=== PATIENT | male | born 1940 | race Caucasian/White ===

== ENCOUNTER 2016-05-09 15:08 | Outpatient (CLI) | payer MEDICARE | END 2016-05-09 15:09 | disposition home or self-care (01) | DX: Z79.01 Long term (current) use of anticoagulants (principal); I48.91 Unspecified atrial fibrillation ==

== ENCOUNTER 2016-05-16 10:09 | Outpatient (CLI) | payer MEDICARE | END 2016-05-16 10:10 | disposition home or self-care (01) | DX: I48.2 Chronic atrial fibrillation (principal); E74.9 Disorder of carbohydrate metabolism, unspecified ==

== ENCOUNTER 2016-07-10 13:41 | Outpatient (CLI) | payer MEDICARE | END 2016-07-10 13:42 | disposition home or self-care (01) | DX: I48.91 Unspecified atrial fibrillation (principal); Z79.01 Long term (current) use of anticoagulants ==

== ENCOUNTER 2016-07-18 12:52 | Outpatient (CLI) | payer MEDICARE | END 2016-07-18 12:53 | disposition home or self-care (01) | DX: I48.91 Unspecified atrial fibrillation (principal); Z79.01 Long term (current) use of anticoagulants ==

== ENCOUNTER 2016-07-24 09:43 | Outpatient (CLI) | payer MEDICARE | END 2016-07-24 09:44 | disposition home or self-care (01) | DX: I48.2 Chronic atrial fibrillation (principal); Z79.899 Other long term (current) drug therapy; I10 Essential (primary) hypertension ==

== ENCOUNTER 2016-08-19 11:37 | Outpatient (CLI) | payer MEDICARE | END 2016-08-19 11:38 | disposition home or self-care (01) | DX: Z00.00 Encounter for general adult medical examination without abnormal findings (principal); I48.91 Unspecified atrial fibrillation; Z79.01 Long term (current) use of anticoagulants; E55.9 Vitamin D deficiency, unspecified; E03.9 Hypothyroidism, unspecified; R73.9 Hyperglycemia, unspecified; E78.2 Mixed hyperlipidemia; Z79.899 Other long term (current) drug therapy ==

== ENCOUNTER 2016-10-16 14:51 | Outpatient (CLI) | payer MEDICARE ==
[2016-10-16 15:19] LABS: CALCIUM 9.5 mg/dL (8.5-10.3); CREATININE 0.7 mg/dL (0.6-1.2); POTASSIUM 4.2 mmol/L (3.5-5.0)
== END 2016-10-16 14:52 | disposition home or self-care (01) ==
LOC: LAB 14:51
PROVIDERS: ATTEND Internal Medicine
DX: Z79.01 Long term (current) use of anticoagulants (principal)
CPT/HCPCS: 36415; 80048; 85610

== ENCOUNTER 2016-12-17 10:52 | Outpatient (CLI) | payer MEDICARE | END 2016-12-17 10:53 | disposition home or self-care (01) | LOC: LAB 10:52 | PROVIDERS: ATTEND Internal Medicine | DX: Z79.01 Long term (current) use of anticoagulants (principal) | CPT/HCPCS: 85610 ==

== ENCOUNTER 2016-12-24 10:21 | Outpatient (CLI) | payer MEDICARE | END 2016-12-24 10:22 | disposition home or self-care (01) | LOC: LAB 10:21 | PROVIDERS: ATTEND Internal Medicine | DX: Z79.01 Long term (current) use of anticoagulants (principal); I48.91 Unspecified atrial fibrillation | CPT/HCPCS: 85610 ==

== ENCOUNTER 2017-01-09 09:54 | Outpatient (CLI) | payer MEDICARE | END 2017-01-09 09:55 | disposition home or self-care (01) | LOC: LAB 09:54 | PROVIDERS: ATTEND Internal Medicine | DX: Z79.01 Long term (current) use of anticoagulants (principal); I48.91 Unspecified atrial fibrillation | CPT/HCPCS: 85610 ==

== ENCOUNTER 2017-02-19 10:49 | Outpatient (CLI) | payer MEDICARE ==
[2017-02-19 11:27] LABS: CALCIUM 9.6 mg/dL (8.5-10.3); CREATININE 0.8 mg/dL (0.6-1.2); POTASSIUM 4.3 mmol/L (3.5-5.0)
== END 2017-02-19 10:50 | disposition home or self-care (01) ==
LOC: LAB 10:49
PROVIDERS: ATTEND Internal Medicine
DX: Z79.01 Long term (current) use of anticoagulants (principal); I48.91 Unspecified atrial fibrillation
CPT/HCPCS: 36415; 80048; 85610

== ENCOUNTER 2017-03-26 10:23 | Outpatient (CLI) | payer MEDICARE | END 2017-03-26 10:24 | disposition home or self-care (01) | LOC: LAB 10:23 | PROVIDERS: ATTEND Internal Medicine | DX: Z79.01 Long term (current) use of anticoagulants (principal); I48.91 Unspecified atrial fibrillation | CPT/HCPCS: 85610 ==

== ENCOUNTER 2017-05-06 09:01 | Outpatient (CLI) | payer MEDICARE ==
[2017-05-06 09:44] LABS: CALCIUM 9.7 mg/dL (8.5-10.3); CREATININE 0.8 mg/dL (0.6-1.2)
== END 2017-05-06 09:02 | disposition home or self-care (01) ==
LOC: LAB 09:01
PROVIDERS: ATTEND Internal Medicine
DX: Z79.01 Long term (current) use of anticoagulants (principal); I48.91 Unspecified atrial fibrillation
CPT/HCPCS: 36415; 80048; 85610

== ENCOUNTER 2017-07-08 09:50 | Outpatient (CLI) | payer MEDICARE | END 2017-07-08 09:51 | disposition home or self-care (01) | LOC: LAB 09:50 | PROVIDERS: ATTEND Internal Medicine | DX: I48.91 Unspecified atrial fibrillation (principal); Z79.01 Long term (current) use of anticoagulants | CPT/HCPCS: 85610 ==

== ENCOUNTER 2017-07-28 11:04 | Outpatient (CLI) | payer MEDICARE | END 2017-07-28 11:05 | disposition home or self-care (01) | LOC: LAB 11:04 | PROVIDERS: ATTEND Internal Medicine | DX: Z79.01 Long term (current) use of anticoagulants (principal); I48.91 Unspecified atrial fibrillation | CPT/HCPCS: 85610 ==

== ENCOUNTER 2017-08-18 08:43 | Outpatient (CLI) | payer MEDICARE | END 2017-08-18 08:44 | disposition home or self-care (01) | LOC: LAB 08:43 | PROVIDERS: ATTEND Internal Medicine | DX: Z79.01 Long term (current) use of anticoagulants (principal); I48.91 Unspecified atrial fibrillation | CPT/HCPCS: 85610 ==

== ENCOUNTER 2017-09-09 11:27 | Outpatient (CLI) | payer MEDICARE ==
[2017-09-09 11:58] LABS: INR 1.4 (0.8-1.2)
[2017-09-09 12:05] LABS: CALCIUM 9.5 mg/dL (8.5-10.3); CREATININE 0.9 mg/dL (0.6-1.2)
== END 2017-09-09 11:28 | disposition home or self-care (01) ==
LOC: LAB 11:27
PROVIDERS: ATTEND Internal Medicine Cardiovascular Disease
DX: I48.91 Unspecified atrial fibrillation (principal); Z79.01 Long term (current) use of anticoagulants
CPT/HCPCS: 36415; 80048; 85610

== ENCOUNTER 2017-09-18 14:11 | Outpatient (CLI) | payer MEDICARE | END 2017-09-18 14:12 | disposition home or self-care (01) | LOC: LAB 14:11 | PROVIDERS: ATTEND Internal Medicine | DX: I48.91 Unspecified atrial fibrillation (principal); Z79.01 Long term (current) use of anticoagulants | CPT/HCPCS: 85610 ==

== ENCOUNTER 2017-11-04 14:34 | Outpatient (CLI) | payer MEDICARE | END 2017-11-04 14:35 | disposition home or self-care (01) | LOC: LAB 14:34 | PROVIDERS: ATTEND Internal Medicine | DX: I48.91 Unspecified atrial fibrillation (principal); Z79.01 Long term (current) use of anticoagulants | CPT/HCPCS: 85610 ==

== ENCOUNTER 2017-12-10 11:37 | Outpatient (CLI) | payer MEDICARE ==
[2017-12-10 12:42] LABS: CALCIUM 10.3 mg/dL (8.5-10.3)
== END 2017-12-10 11:38 | disposition home or self-care (01) ==
LOC: LAB 11:37
PROVIDERS: ATTEND Internal Medicine Cardiovascular Disease
DX: Z79.01 Long term (current) use of anticoagulants (principal); I48.91 Unspecified atrial fibrillation; Z51.81 Encounter for therapeutic drug level monitoring; Z79.899 Other long term (current) drug therapy
CPT/HCPCS: 36415; 80048; 85610

== ENCOUNTER 2018-01-12 15:24 | Outpatient (CLI) | payer MEDICARE | END 2018-01-12 15:25 | disposition home or self-care (01) | LOC: LAB 15:24 | PROVIDERS: ATTEND Internal Medicine | DX: Z79.01 Long term (current) use of anticoagulants (principal); I48.91 Unspecified atrial fibrillation | CPT/HCPCS: 85610 ==

== ENCOUNTER 2018-01-30 10:56 | Outpatient (CLI) | payer MEDICARE | END 2018-01-30 10:57 | disposition home or self-care (01) | LOC: LAB 10:56 | PROVIDERS: ATTEND Internal Medicine | DX: Z79.01 Long term (current) use of anticoagulants (principal); I48.91 Unspecified atrial fibrillation | CPT/HCPCS: 85610 ==

== ENCOUNTER 2018-02-03 15:40 | Outpatient (CLI) | payer MEDICARE | END 2018-02-03 15:41 | disposition home or self-care (01) | LOC: LAB 15:40 | PROVIDERS: ATTEND Internal Medicine Cardiovascular Disease | DX: Z51.81 Encounter for therapeutic drug level monitoring (principal); Z79.899 Other long term (current) drug therapy | CPT/HCPCS: 85610 ==

== ENCOUNTER 2018-02-12 14:08 | Outpatient (CLI) | payer MEDICARE | END 2018-02-12 14:09 | disposition home or self-care (01) | LOC: LAB 14:08 | PROVIDERS: ATTEND Internal Medicine | DX: Z79.01 Long term (current) use of anticoagulants (principal); I48.91 Unspecified atrial fibrillation | CPT/HCPCS: 85610 ==

== ENCOUNTER 2018-02-19 11:30 | Outpatient (CLI) | payer MEDICARE | END 2018-02-19 11:31 | disposition home or self-care (01) | LOC: LAB 11:30 | PROVIDERS: ATTEND Internal Medicine | DX: Z79.01 Long term (current) use of anticoagulants (principal); I48.91 Unspecified atrial fibrillation | CPT/HCPCS: 85610 ==

== ENCOUNTER 2018-03-03 11:16 | Outpatient (CLI) | payer MEDICARE ==
[2018-03-03 11:50] LABS: INR 2.1 (0.8-1.2); PT - PROTHROMBIN TIME 23.8 secs (9.9-12.6)
[2018-03-03 11:58] LABS: CALCIUM 9.5 mg/dL (8.5-10.3); CREATININE 0.8 mg/dL (0.6-1.2)
== END 2018-03-03 11:17 | disposition home or self-care (01) ==
LOC: LAB 11:16
PROVIDERS: ATTEND Internal Medicine
DX: Z79.01 Long term (current) use of anticoagulants (principal); I48.91 Unspecified atrial fibrillation; Z51.81 Encounter for therapeutic drug level monitoring; Z79.899 Other long term (current) drug therapy
CPT/HCPCS: 36415; 80048; 85610

== ENCOUNTER 2018-03-30 10:51 | Outpatient (CLI) | payer MEDICARE ==
[2018-03-30 11:20] LABS: HGB - HEMOGLOBIN 13.9 g/dL (14.0-18.0); MEAN CORPUSCULAR HEMOGLOBIN 32.2 pg (27.0-31.0); MEAN CORPUSCULAR HGB CONC 34.2 g/dL (32.0-36.0); MEAN CORPUSCULAR VOLUME 93.9 fL (80.0-94.0); MEAN PLATELET VOLUME 8.9 fL (7.4-11.4); RED BLOOD COUNT 4.32 10^6/uL (4.70-6.10); RED CELL DISTRIBUTION WIDTH 14.5 % (12.0-15.0); WHITE BLOOD COUNT 5.5 x10^3/uL (4.8-10.8)
[2018-03-30 11:34] LABS: INR 2.6 (0.8-1.2); PT - PROTHROMBIN TIME 29.3 secs (9.9-12.6)
[2018-03-30 11:42] LABS: BUN - BLOOD UREA NITROGEN 27 mg/dL (6-20); CALCIUM 9.3 mg/dL (8.5-10.3); CARBON DIOXIDE - CO2 28 mmol/L (21-32); CHLORIDE 100 mmol/L (101-111); CHOL/HDL RATIO 2.8 (<5.0); CHOLESTEROL 175 mg/dL; GFR - MDRD 72 (>89); GLUCOSE 109 mg/dL (70-100); HDL CHOLESTEROL 63 mg/dL; LDL CHOLESTEROL,CALCULATED 90 mg/dL; LDL/HDL RATIO 1.4 (<3.6); SODIUM 134 mmol/L (135-145); VLDL CHOLESTEROL 22 mg/dL
== END 2018-03-30 10:52 | disposition home or self-care (01) ==
LOC: LAB 10:51
PROVIDERS: ATTEND Internal Medicine
DX: I48.2 Chronic atrial fibrillation (principal); I10 Essential (primary) hypertension; Z79.899 Other long term (current) drug therapy; E74.9 Disorder of carbohydrate metabolism, unspecified; Z79.01 Long term (current) use of anticoagulants; Z12.5 Encounter for screening for malignant neoplasm of prostate
CPT/HCPCS: 36415; 80048; 80061; 85027; 85610; G0103; 83721; 84153

== ENCOUNTER 2018-06-16 10:39 | Outpatient (CLI) | payer MEDICARE ==
[2018-06-16 11:19] LABS: CALCIUM 9.7 mg/dL (8.5-10.3); CREATININE 0.8 mg/dL (0.6-1.2)
== END 2018-06-16 10:40 | disposition home or self-care (01) ==
LOC: LAB 10:39
PROVIDERS: ATTEND Internal Medicine
DX: I48.91 Unspecified atrial fibrillation (principal); Z79.01 Long term (current) use of anticoagulants; Z51.81 Encounter for therapeutic drug level monitoring; Z79.899 Other long term (current) drug therapy; Z12.5 Encounter for screening for malignant neoplasm of prostate
CPT/HCPCS: 36415; 80048; 85610; G0103; 84153

== ENCOUNTER 2018-06-25 15:26 | Outpatient (CLI) | payer MEDICARE | END 2018-06-25 15:27 | disposition home or self-care (01) | LOC: LAB 15:26 | PROVIDERS: ATTEND Internal Medicine | DX: I48.91 Unspecified atrial fibrillation (principal); Z79.01 Long term (current) use of anticoagulants | CPT/HCPCS: 85610 ==

== ENCOUNTER 2018-08-04 12:26 | Outpatient (CLI) | payer MEDICARE | END 2018-08-04 12:27 | disposition home or self-care (01) | LOC: LAB 12:26 | PROVIDERS: ATTEND Internal Medicine | DX: I48.91 Unspecified atrial fibrillation (principal); Z79.01 Long term (current) use of anticoagulants | CPT/HCPCS: 85610 ==

== ENCOUNTER 2018-08-12 09:54 | Outpatient (CLI) | payer MEDICARE | END 2018-08-12 09:55 | disposition home or self-care (01) | LOC: LAB 09:54 | PROVIDERS: ATTEND Internal Medicine | DX: I48.91 Unspecified atrial fibrillation (principal); Z79.01 Long term (current) use of anticoagulants | CPT/HCPCS: 85610 ==

== ENCOUNTER 2018-09-10 11:08 | Outpatient (CLI) | payer MEDICARE ==
[2018-09-10 12:07] LABS: CALCIUM 9.8 mg/dL (8.5-10.3); CREATININE 1.1 mg/dL (0.6-1.2)
== END 2018-09-10 23:59 | disposition home or self-care (01) ==
LOC: LAB 11:08
PROVIDERS: ATTEND Internal Medicine Cardiovascular Disease
DX: I48.91 Unspecified atrial fibrillation (principal); Z79.01 Long term (current) use of anticoagulants; Z51.81 Encounter for therapeutic drug level monitoring; Z79.899 Other long term (current) drug therapy
CPT/HCPCS: 36415; 80048; 85610

== ENCOUNTER 2018-09-20 15:01 | Outpatient (CLI) | payer MEDICARE ==
[2018-09-20 15:30] LABS: CALCIUM 9.4 mg/dL (8.5-10.3); CREATININE 1.4 mg/dL (0.6-1.2)
== END 2018-09-20 15:02 | disposition home or self-care (01) ==
LOC: LAB 15:01
PROVIDERS: ATTEND Internal Medicine
DX: I10 Essential (primary) hypertension (principal); I48.2 Chronic atrial fibrillation; E74.9 Disorder of carbohydrate metabolism, unspecified; Z79.899 Other long term (current) drug therapy
CPT/HCPCS: 36415; 80048

== ENCOUNTER 2018-10-05 10:01 | Outpatient (CLI) | payer MEDICARE | END 2018-10-05 10:02 | disposition home or self-care (01) | LOC: LAB 10:01 | PROVIDERS: ATTEND Internal Medicine | DX: Z79.01 Long term (current) use of anticoagulants (principal); I48.91 Unspecified atrial fibrillation | CPT/HCPCS: 85610 ==

== ENCOUNTER 2018-10-27 08:00 | Outpatient (CLI) | payer MEDICARE ==
[2018-10-27 15:32] LABS: INR 4.2 (0.8-1.2); PT - PROTHROMBIN TIME 46.9 secs (9.9-12.6)
[2018-10-27 15:58] LABS: CALCIUM 9.6 mg/dL (8.5-10.3); CREATININE 1.5 mg/dL (0.6-1.2)
== END 2018-10-27 23:59 | disposition home or self-care (01) ==
LOC: LAB 08:00
PROVIDERS: ATTEND Internal Medicine
DX: Z51.81 Encounter for therapeutic drug level monitoring (principal); Z79.01 Long term (current) use of anticoagulants; I48.91 Unspecified atrial fibrillation; Z79.899 Other long term (current) drug therapy
CPT/HCPCS: 80048; 85610

== ENCOUNTER 2018-11-02 15:48 | Outpatient (CLI) | payer MEDICARE | END 2018-11-02 15:49 | disposition home or self-care (01) | LOC: LAB 15:48 | PROVIDERS: ATTEND Internal Medicine | DX: Z79.01 Long term (current) use of anticoagulants (principal); I48.91 Unspecified atrial fibrillation | CPT/HCPCS: 85610 ==

== ENCOUNTER 2018-11-25 16:20 | Outpatient (CLI) | payer MEDICARE | END 2018-11-25 16:21 | disposition home or self-care (01) | LOC: LAB 16:20 | PROVIDERS: ATTEND Internal Medicine | DX: I48.91 Unspecified atrial fibrillation (principal); Z79.01 Long term (current) use of anticoagulants | CPT/HCPCS: 85610 ==

== ENCOUNTER 2018-12-03 10:43 | Outpatient (CLI) | payer MEDICARE ==
[2018-12-03 11:34] LABS: BASOPHILS # (AUTO) 0.1 10^3/uL (0.0-0.1); EOSINOPHILS # (AUTO) 0.2 10^3/uL (0.0-0.7); EOSINOPHILS % (AUTO) 2.4 %; HGB - HEMOGLOBIN 13.1 g/dL (14.0-18.0); LYMPHOCYTES % (AUTO) 14.2 %; MEAN CORPUSCULAR HEMOGLOBIN 30.9 pg (27.0-31.0); MEAN CORPUSCULAR VOLUME 96.7 fL (80.0-94.0); MEAN PLATELET VOLUME 10.5 fL (7.4-11.4); MONOCYTES # (AUTO) 0.7 10^3/uL (0.0-1.0); MONOCYTES % (AUTO) 9.5 %; NEUTROPHILS # (AUTO) 5.2 10^3/uL (1.5-6.6); NEUTROPHILS % (AUTO) 72.8 %; PLT - PLATELET COUNT 230 10^3/uL (130-450); RED BLOOD COUNT 4.24 10^6/uL (4.70-6.10); RED CELL DISTRIBUTION WIDTH 15.8 % (12.0-15.0); WHITE BLOOD COUNT 7.2 x10^3/uL (4.8-10.8)
[2018-12-03 11:36] LABS: CREATININE 1.2 mg/dL (0.6-1.2)
[2018-12-03 12:08] LABS: THYROID STIMULATING HORMONE 1.79 uIU/mL (0.34-5.60)
[2018-12-03 12:10] LABS: FREE T4 (FREE THYROXINE) 1.26 ng/dL (0.58-1.64)
== END 2018-12-03 10:44 | disposition home or self-care (01) ==
LOC: LAB 10:43
PROVIDERS: ATTEND Internal Medicine
DX: I48.2 Chronic atrial fibrillation (principal); E74.9 Disorder of carbohydrate metabolism, unspecified; I10 Essential (primary) hypertension; Z79.01 Long term (current) use of anticoagulants
CPT/HCPCS: 36415; 80048; 84153; 84439; 84443; 85025; 85610

== ENCOUNTER 2018-12-24 15:20 | Outpatient (CLI) | payer MEDICARE | END 2018-12-24 15:21 | disposition home or self-care (01) | LOC: LAB 15:20 | PROVIDERS: ATTEND Internal Medicine | DX: I48.91 Unspecified atrial fibrillation (principal); Z79.01 Long term (current) use of anticoagulants | CPT/HCPCS: 85610 ==

== ENCOUNTER 2019-01-22 15:04 | Outpatient (CLI) | payer MEDICARE | END 2019-01-22 15:05 | disposition home or self-care (01) | LOC: LAB 15:04 | PROVIDERS: ATTEND Internal Medicine | DX: Z79.01 Long term (current) use of anticoagulants (principal); I48.91 Unspecified atrial fibrillation | CPT/HCPCS: 85610 ==

== ENCOUNTER 2019-01-29 12:42 | Outpatient (CLI) | payer MEDICARE ==
[2019-01-29 13:23] LABS: BUN - BLOOD UREA NITROGEN 37 mg/dL (6-20); CALCIUM 9.9 mg/dL (8.5-10.3); CARBON DIOXIDE - CO2 28 mmol/L (21-32); CHLORIDE 100 mmol/L (101-111); CHOL/HDL RATIO 2.1 (<5.0); CHOLESTEROL 116 mg/dL; GFR - MDRD 72 (>89); GLUCOSE 103 mg/dL (70-100); HDL CHOLESTEROL 55 mg/dL; LDL CHOLESTEROL,CALCULATED 48 mg/dL; LDL/HDL RATIO 0.9 (<3.6); SODIUM 138 mmol/L (135-145); VLDL CHOLESTEROL 13 mg/dL
== END 2019-01-29 12:43 | disposition home or self-care (01) ==
LOC: LAB 12:42
PROVIDERS: ATTEND Internal Medicine
DX: I10 Essential (primary) hypertension (principal); D64.9 Anemia, unspecified; Z79.899 Other long term (current) drug therapy; I48.0 Paroxysmal atrial fibrillation; Z79.01 Long term (current) use of anticoagulants
CPT/HCPCS: 36415; 80048; 80061; 83721; 85610

== ENCOUNTER 2019-02-24 16:10 | Outpatient (CLI) | payer MEDICARE | END 2019-02-24 16:11 | disposition home or self-care (01) | LOC: LAB 16:10 | PROVIDERS: ATTEND Internal Medicine | DX: Z79.01 Long term (current) use of anticoagulants (principal); I48.91 Unspecified atrial fibrillation | CPT/HCPCS: 85610 ==

== ENCOUNTER 2019-04-22 15:13 | Outpatient (CLI) | payer MEDICARE | END 2019-04-22 15:14 | disposition home or self-care (01) | LOC: LAB 15:13 | PROVIDERS: ATTEND Internal Medicine | DX: Z79.01 Long term (current) use of anticoagulants (principal); I48.91 Unspecified atrial fibrillation | CPT/HCPCS: 85610 ==

== ENCOUNTER 2019-06-04 08:21 | Outpatient (CLI) | payer MEDICARE ==
[2019-06-04 08:54] LABS: CALCIUM 9.6 mg/dL (8.5-10.3); CREATININE 1.5 mg/dL (0.6-1.2)
== END 2019-06-04 08:22 | disposition home or self-care (01) ==
LOC: LAB 08:21
PROVIDERS: ATTEND Internal Medicine Cardiovascular Disease
DX: Z51.81 Encounter for therapeutic drug level monitoring (principal); Z79.899 Other long term (current) drug therapy; Z79.01 Long term (current) use of anticoagulants; I48.91 Unspecified atrial fibrillation
CPT/HCPCS: 36415; 80048; 85610

== ENCOUNTER 2019-07-09 16:33 | Outpatient (CLI) | payer MEDICARE | END 2019-07-09 16:34 | disposition home or self-care (01) | LOC: COV 16:33 | PROVIDERS: ATTEND Family Medicine | DX: R05 Cough (principal); R50.9 Fever, unspecified | CPT/HCPCS: 81599; U0002 ==

== ENCOUNTER 2019-10-07 08:49 | Outpatient (CLI) | payer MEDICARE ==
[2019-10-07 09:15] LABS: CALCIUM 9.4 mg/dL (8.5-10.3); CREATININE 1.3 mg/dL (0.6-1.2)
[2019-10-07 09:52] LABS: INR 3.2 (0.8-1.2); PT - PROTHROMBIN TIME 33.8 secs (9.9-12.6)
== END 2019-10-07 08:50 | disposition home or self-care (01) ==
LOC: LAB 08:49
PROVIDERS: ATTEND Internal Medicine Cardiovascular Disease
DX: I48.91 Unspecified atrial fibrillation (principal); Z79.899 Other long term (current) drug therapy; Z51.81 Encounter for therapeutic drug level monitoring
CPT/HCPCS: 36415; 80048; 85610

== ENCOUNTER 2021-01-16 16:36 | Outpatient (CLI) | payer MEDICARE | END 2021-01-16 16:37 | disposition home or self-care (01) | LOC: COV 16:36 | PROVIDERS: ATTEND Family Medicine | DX: U07.1 COVID-19 (principal) ==

== ENCOUNTER 2022-01-17 06:21 | Outpatient (CLI) | payer MEDICARE ==
[2022-01-17] MEDS ORDERED: DIATRIZOATE MEGLU/DIATRIZO SOD 30 ML BOTTLE PO ONE (06:46)
[2022-01-17] MEDS: DIATRIZOATE MEGLU/DIATRIZO SOD 30 ML BOTTLE PO ONE (08:17)
--- NOTE | 2022-01-17 11:38 | CT Report ---
PROCEDURE: Abdomen/Pelvis W INDICATIONS: CHRONIC DIARRHEA CONTRAST: IV CONTRAST: Optiray 320 ml: 100 PO CONTRAST: Redi-Cat ml30 TECHNIQUE: After the administration of contrast, 5 mm thick sections acquired from the diaphragms to the symphy sis. 5 mm thick coronal and sagittal reformats were acquired. For radiation dose reduction, the fol lowing was used: automated exposure control, adjustment of mA and/or kV according to patient size. COMPARISON: None. FINDINGS: Image quality: There is limited visualization of the pelvis secondary to artifact from hip arthropla sty. ABDOMEN: Lung bases: Lung bases are clear. Heart size is enlarged. Solid organs: Liver and spleen are normal in size and enhancement. Hepatic steatosis is noted. Gal lbladder demonstrates dependent stones without wall thickening. Biliary system is non dilated. Panc reas enhances normally. No adrenal nodules. Kidneys demonstrate normal size and enhancement, withou t hydronephrosis. Simple bilateral renal cysts are noted. Peritoneum and bowel: Bowel loops demonstrate normal wall thickness and caliber. No free fluid or a ir. Nodes and vessels: No retroperitoneal or mesenteric adenopathy by size criteria. Aorta is ectatic. Miscellaneous: Fat-containing ventral hernia. PELVIS: Genitourinary: Bladder wall thickness is normal. Miscellaneous: Fat-containing inguinal hernias are present. Bones: No suspicious bony lesions. No vertebral body compression fractures. IMPRESSION: Hepatic steatosis. Cholelithiasis without imaging evidence of cholecystitis. Simple renal cysts. No visualized cause of diarrhea. Reviewed by: Jackie Garibay MD on 01/17/2022 11:37 AM PDT Approved by: Jackie Garibay MD on 01/17/2022 11:37 AM PDT Station ID: [id number]
== END 2022-01-17 06:22 | disposition home or self-care (01) ==
LOC: DI 06:21
PROVIDERS: ATTEND Family Medicine
DX: K52.9 Noninfective gastroenteritis and colitis, unspecified (principal); K80.20 Calculus of gallbladder without cholecystitis without obstruction; K76.0 Fatty (change of) liver, not elsewhere classified; N28.1 Cyst of kidney, acquired
CPT/HCPCS: 74177; Q9963; Q9967

== ENCOUNTER 2022-03-22 09:02 | Day surgery (SDC) | payer MEDICARE ==
[~2022-03-22 09:02] MED LIST: CEFAZOLIN 2G/50ML 0.9% NS 2 GM/50 ML BAG IV ONE
[2022-03-22] MEDS ORDERED: LACTATED RINGERS 1,000 ML IV ONE ×2 (09:16→13:58)
[2022-03-22] MEDS ORDERED: BUPIVACAINE 0.5% PF 30 ML VIAL ONE ×2 (10:06→11:27)
--- NOTE | 2022-03-22 11:29 | ANESTHESIA ---
Pre-Anesthesia VS, & Labs - Diagnosis Bilateral hernia - Procedure B hernia repair Height: 5 ft 6 in Weight (kg): 70.5 kg Body Mass Index: 25.0 BMI Classification: Overweight - NPO >8 hours Home Medications and Allergies Home Medications: Ambulatory Orders Furosemide [Lasix] 20 mg PO DAILY 03/20/22 Isosorbide Dinitrate [Isordil] 20 mg PO BID 03/20/22 Latanoprost 0.005% Ophth Drops [Xalatan Ophth Drops] 1 drops OPTH QPM 03/20/22 Lisinopril [Zestril] 20 mg PO DAILY 03/20/22 Metoprolol Succinate 100 mg PO BID 03/20/22 Warfarin [Coumadin] 5 mg PO DAILY 03/20/22 Furosemide [Lasix] 20 mg PO DAILY 03/20/22 Isosorbide Dinitrate [Isordil] 20 mg PO BID 03/20/22 Latanoprost 0.005% Ophth Drops [Xalatan Ophth Drops] 1 drops OPTH QPM 03/20/22 Lisinopril [Zestril] 20 mg PO DAILY 03/20/22 Metoprolol Succinate 100 mg PO BID 03/20/22 Warfarin [Coumadin] 5 mg PO DAILY 03/20/22 Allergies/Adverse Reactions: Allergies Allergy/AdvReac Type Severity Reaction Status Date / Time No Known Drug Allergies Allergy Verified 03/19/22 15:16 Anes History & Medical History - Anesthetic History Anesthesia Complications: reports: No previous complications Family history of Anesthesia Complications: Denies Family history of Malignant Hyperthermia: Denies - Medical History Cardiovascular: reports: Hypertension, Atrial fibrillation Pulmonary: reports: COPD, Emphysema Gastrointestinal: reports: Chronic diarrhea Urinary: reports: Benign prostate hypertrophy Musculoskeletal: reports: Osteoarthritis Endocrine/Autoimmune: reports: None Skin: reports: None Smoking Status: Current every day smoker - Surgical History Cardiothoracic: reports: Pacemaker Orthopedic: reports: Hip replacement Exam General: Alert, Oriented x3, Cooperative Dental: Dentures full Upper, Dentures full Lower Mouth Openin Fingerbreadth Neck Mobility: Normal Mallampati classification: II Thyromental Distance: 4-6 cm Respiratory: Lungs clear Cardiovascular: Regular rate Plan Anesthesia Type: General Consent for Procedure(s) Verified and Reviewed: Yes Code Status: Attempt Resuscitation ASA classification: 3-Severe systemic disease Is this case an emergency?: No
[2022-03-22] MEDS ORDERED: ATROPINE ABBOJECT 1 MG/10 ML SYRINGE IVP PRN (11:30)
[2022-03-22] MEDS ORDERED: ePHEDrine 50 MG/ML VIAL IVP PRN (11:30)
[2022-03-22] MEDS ORDERED: METOCLOPRAMIDE 10 MG/2 ML VIAL IVP PRN (11:30)
[2022-03-22] MEDS ORDERED: fentaNYL 100 MCG/2 ML VIAL IVP PRN (11:30)
[2022-03-22] MEDS ORDERED: ONDANSETRON 4 MG/2 ML VIAL IVP PRN ×2 (11:30→14:07)
[2022-03-22] MEDS ORDERED: HYDROmorphone 0.5 MG/0.5 ML SYRINGE IVP PRN ×2 (11:30→14:07)
[2022-03-22] MEDS ORDERED: NALOXONE 0.4 MG/ML VIAL IVP PRN (11:30)
[2022-03-22] MEDS ORDERED: MORPHINE 2 MG/ML CARPUJECT IVP PRN (11:30)
[2022-03-22] MEDS ORDERED: PROPOFOL 200 MG/20 ML VIAL IVP ONE (11:34)
[2022-03-22] MEDS ORDERED: ONDANSETRON 4 MG/2 ML VIAL ONE ×2 (11:35→13:28)
[2022-03-22] MEDS ORDERED: DEXAMETHASONE 4 MG/ML VIAL ONE (11:35)
[2022-03-22] MEDS ORDERED: fentaNYL 100 MCG/2 ML VIAL ONE ×2 (11:37→12:26)
[2022-03-22] MEDS ORDERED: BUPIVACAINE 0.5% PF 30 ML VIAL SUBQ ONE ×2 (11:59)
[2022-03-22] MEDS ORDERED: LACTATED RINGERS 1,000 ML IV SCH (12:00)
[2022-03-22] MEDS ORDERED: ePHEDrine 50 MG/ML VIAL IVP ONE (12:43)
[2022-03-22] MEDS ORDERED: ACETAMINOPHEN 1,000 MG/100 ML 1,000 MG/100 ML BAG IV ONE (14:06)
[2022-03-22] MEDS ORDERED: HYDROcod/ACETAM 5/325 MG TABLET PO PRN (14:07)
--- NOTE | 2022-03-22 14:11 | OPERATIVE REPORT ---
Operative Report - General Procedure Date: 03/22/22 Planned Procedure: Bilateral inguinal herniorrhaphy Pre-Op Diagnosis: Bilateral inguinal hernia Procedure Performed: Bilateral indirect sliding inguinal hernia Post Op Diagnosis: Bilateral sliding inguinal hernias with the left much larger than the right - Procedure Note Primary Surgeon: Mayank Muniz MD Anesthesia Provider: RADHA Thapa supervised by Melina Vila CRNA Anesthesia Technique: General ET tube, Local (30 mL of half percent Marcaine (15 mL on each side)) IV Fluids (mL): 1,000 Estimated Blood Loss (mL): 10 Drain/Tube Type: Other (None.) Indications: Symptomatic bilateral inguinal hernias. Findings: As above. Complications: None. - Other Other Information/Narrative: After verbal and written informed consent was obtained detailing the operation, the alternatives the operation including no operation, risks of infection, bleeding requiring transfusion with its risks, nerve injury, and and after I met with the patient confirming the surgery and the site of surgery, the patient was brought to the operative suite and placed supine on the operating table. Great care was taken to avoid pressure points to prevent pressure necrosis or nerve injury. Monitoring devices were applied along with TEDs and pneumatic compression stockings (to prevent DVT). The patient received preoperative antibiotics for surgical prophylaxis. RADHA Thapa supervised by Melina Vila CRNA sedated and anesthetized the patient for the entire procedure. The patient was prepped and draped in the usual sterile manner. With the patient draped my initials were clearly visible. A "time in" then confirmed that the patient was identified with 3 identifiers (name, date, and medical record number), the history and physical was updated and in the chart, the signed consent confirming the procedure was in the chart, the patient was in the correct position, the aforementioned prophylactic measures were in place or given, we had the correct personnel and equipment to complete the procedure and that anesthesia and the surgical team were given an opp ortunity to express any concerns. With the agreement of everyone in the room we proceeded with the operation. The left side which was the larger and more symptomatic side was addressed first. A standard inguinal incision was made and dissection was carried down to the external oblique aponeurosis using a combination of Metzenbaum scissors and Bovie electrocautery. The external oblique aponeurosis was cleared of overlying adherent tissue, and the external ring was delineated. The external oblique was incised with a scalpel and this incision was carried down to the external ring using Metzenbaum scissors. Care was taken not to injure the ilioinguinal nerve. Having expose the inguinal canal, the cord structures were from the canal using blunt dissection and a Alana drain was placed around the cord structures at the level of the pubic tubercle. This Felton drain was then used to retract the cord structures as needed. Adherent cremasteric muscle was dissected free from the cord using Bovie electrocautery. The cord was then explored using a combination of sharp and blunt dissection, and an indirect sac was found. The sac was then dissected back to the internal ring and it could not be emptied of its contents. I opened the sac and found the sigmoid colon to be present as part of a sliding indirect inguinal hernia. The opening in the sac was closed using a 3-0 Vicryl in a pursestring fashion. The hernia sac was then placed back into the abdomen. An extra-large PerFix plug was then inserted into the internal ring and secured to the edge of the internal ring using a 2-0 PDS. This side was more difficult to complete due to the fact that there was a large amount of sigmoid colon present within the hernia sac. The PerFix onlay patch was then secured to the pubic tubercle with a 2 0-PDS U stitch. The mesh was then secured to the conjoined tendon superiorly using interrupted 2-0 PDS sutures and secured to the shelving edge of Poupart's ligament inferiorly using interrupted 2-0 PDS sutures. The mesh was secured around the cord structures loosely with a 2-0 PDS suture thus creating a new internal ring. The Felton drain was then removed. Meticulous hemostasis was obtained using Bovie electrocautery. The wound was then injected superficially and deep using 15 mL of half percent Marcaine. The incision the external oblique was approximated using 3-0 Vicryl in a running fashion thus reforming the external ring. The skin incision was approximated with 4-0 Monocryl in a subcuticular fashion. The right side was then addressed and was repaired in a very similar manner other than the fact that there was no colon within this sliding hernia only fat. The hernia sac was also markedly smaller aiding in its repair. The skin was cleaned of its prep and Dermabond was applied bilaterally. At this point a timeout was performed that confirmed that all counts were correct x2, the procedure that was performed, the blood loss, the IV fluids administered, the patient's condition, and any concerns of the operating team had. Please note that a count was done after each side was completed. Having tolerated the procedure well, the patient was taken recovery room in good and stable condition. Gentle downward traction ensured the testes were well seated in the scrotum. The plan is for outpatient discharge when the patient is adequately r ecovered. CPT 08996 mod 50 (sliding hernia with modifier for bilateral) This document was created in part using voice recognition technology. Because of the inherent limitations of the system, occasional same sounding word substitutions and grammatical errors do occur and persist despite proofreading. Please read this document for content.
[2022-03-22] MEDS ORDERED: HYDROcod/ACETAM 5/325 MG TABLET ONE (14:49)
[2022-03-22 15:40] VITALS: BP 144/86
--- NOTE | 2022-03-22 16:26 | ANESTHESIA POST OP EVALUATION ---
Anesthesia Post Eval - Post Anesthesia Eval Vitals: Last Vital Signs Temp 36.5 C 03/22/22 15:20 Pulse 66 03/22/22 15:20 Resp 16 03/22/22 15:20 BP 144/86 H 03/22/22 15:20 Pulse Ox 96 03/22/22 15:20 O2 Flow Rate CV Function Including HR & BP: Stable Pain Control: Satisfactory Nausea & Vomiting: Negative Mental Status: Baseline Respiratory Status: Airway Patent Hydration Status: Satisfactory Anesthesia Complications: None
== END 2022-03-22 09:03 | disposition home or self-care (01) ==
LOC: SDS 09:02
PROVIDERS: ATTEND Surgery
DX: K40.20 Bilateral inguinal hernia, without obstruction or gangrene, not specified as recurrent (principal); N18.30 Chronic kidney disease, stage 3 unspecified; I13.0 Hypertensive heart and chronic kidney disease with heart failure and stage 1 through stage 4 chronic kidney disease, or unspecified chronic kidney disease; I50.9 Heart failure, unspecified; I48.20 Chronic atrial fibrillation, unspecified; J43.9 Emphysema, unspecified; Z79.01 Long term (current) use of anticoagulants; Z79.899 Other long term (current) drug therapy
CPT/HCPCS: 49525; A9270; C1781; J0131; J0690; J7120

== ENCOUNTER 2022-05-24 03:22 | Emergency (ER) | payer MEDICARE ==
--- NOTE | 2022-05-24 04:15 | ED Physician Documentation ---
History of Present Illness - Stated complaint Stated Complaint: HIGH BP - Chief complaint Chief Complaint: Cardiac - History obtained from History obtained from: Patient, Family () - Additonal information Additional information: 82yM with pmh htn p/w increased BP readings at home early this morning. Patient routinely wakes around 1 to 2am every night and takes his blood pressure. Tonight he had multiple high readings and came to the ED. denies n/v, cp, soa, vision changes. Note that he takes sildenafil and took 100mg around 2 am. Note also he says he has been eating a lot of salty chips this week. Review of Systems Constitutional: denies: Fever Eyes: denies: Decreased vision Cardiac: denies: Chest pain / pressure Respiratory: denies: Dyspnea PD PAST MEDICAL HISTORY - Past Medical History Cardiovascular: Hypertension, Atrial fibrillation Respiratory: COPD, Emphysema Endocrine/Autoimmune: None GI: Chronic diarrhea : Benign prostate hypertrophy HEENT: Chronic vision loss, Chronic hearing loss Psych: Depression, Anxiety Musculoskeletal: Osteoarthritis Derm: None - Past Surgical History Past Surgical History: No Ortho: Hip replacement Cardiovascular: Pacemaker - Present Medications Home Medications: Ambulatory Orders Medication Instructions Recorded Confirmed Furosemide [Lasix] 20 mg PO DAILY 03/20/22 05/24/22 Isosorbide Dinitrate [Isordil] 20 mg PO BID 03/20/22 05/24/22 Latanoprost 0.005% Ophth Drops 1 drops OPTH QPM 03/20/22 05/24/22 [Xalatan Ophth Drops] Lisinopril [Zestril] 20 mg PO DAILY 03/20/22 05/24/22 Metoprolol Succinate 100 mg PO BID 03/20/22 05/24/22 Warfarin [Coumadin] 5 mg PO DAILY 03/20/22 05/24/22 Docusate Sodium 250Mg Capsule 250 mg PO DAILY #10 cap 03/22/22 05/24/22 [Colace 250Mg Capsule] Atorvastatin [Lipitor] 10 mg PO DAILY 05/24/22 05/24/22 - Allergies Allergies/Adverse Reactions: Allergies Allergy/AdvReac Type Severity Reaction Status Date / Time No Known Drug Allergies Allergy Verified 05/24/22 03:39 - Social History Does the pt smoke?: Yes Smoking Status: Current every day smoker Does the pt drink ETOH?: No Does the pt have substance abuse?: No - POLST Patient has POLST: No PD ED PE NORMAL - Vitals Vital signs reviewed: Yes - General General: Alert and oriented X 3, No acute distress, Well developed/nourished - HEENT HEENT: Atraumatic, PERRL, EOMI - Cardiac Cardiac: RRR - Respiratory Respiratory: No respiratory distress, Clear bilaterally - Neuro Neuro: Alert and oriented X 3, pediatric physician 2-12 intact, No motor deficit, No sensory deficit, Normal speech Results - Vitals Vitals: Vital Signs - 24 hr 05/24/22 05/24/22 03:25 03:33 Temperature 36.4 C L Heart Rate 65 75 Respiratory 18 9 L Rate Blood Pressure 202/121 H 172/115 H O2 Saturation 97 97 Oxygen O2 Source Room air PD Medical Decision Making - ED course ED course: 82yM p/w asymptomatic hypertension, improving on its own in the ED. return precautions given. Plan to f/u with pcp and dental patient coordinator. Departure - Departure Disposition: 01 Home, Self Care Clinical Impression: Asymptomatic hypertension Condition: Good Instructions: Hypertension Control, Choices Low Salt Comments: You were seen in the emergency department for evaluation of high blood pressure. Please follow-up with your primary care doctor Dr. Hu and with your dental patient coordinator Dr. Go. Return to the emergency department for new or worsening symptoms or other concerns.
[2022-05-24 04:29] VITALS: BP 159/124
== END 2022-05-24 04:28 | disposition home or self-care (01) ==
LOC: ED 03:22
DX: I10 Essential (primary) hypertension (principal); F17.200 Nicotine dependence, unspecified, uncomplicated
CPT/HCPCS: 99283; 99284